=== PATIENT | female | born 1960 | race Caucasian/White ===

== ENCOUNTER 2020-07-10 17:22 | Outpatient (REF) | payer OTHER, SELFPAY ==
--- NOTE | 2020-07-10 16:30 | PAPFT_PTH ---
PATIENT: LATOYA URIBE LOC: [facility]#:[id number] AGE/SX: 59/F ROOM: RE07/10/[address]: Stacie Tamez : 1960 BED: DIS: 07/10/2020 SPEC #: [id number] RECD: 07/11/20 12:54 STATUS: DEBORAH REShereen #: [id number] MARGY: 07/10/20 16:[address]: Stacie Tamez DEPT: [facility] Cytology RECD BY: Vane Rasmussen Tissues: 1 - CX/ENDOCX FOR PAP SMEARS Procedures: PAP THIN PREP/[facility] Screening HPV DNA PROBE Comments: [id number] ([facility])
== END 2020-07-10 17:42 ==
LOC: NCHCN 17:22
PROVIDERS: PCP Family Medicine; Visit Provider Family Medicine
DX: Z00.00 Encounter for general adult medical examination without abnormal findings (principal); Z12.4 Encounter for screening for malignant neoplasm of cervix; Z87.42 Personal history of other diseases of the female genital tract; Z11.51 Encounter for screening for human papillomavirus (HPV)
CPT/HCPCS: 88142; 87624

== ENCOUNTER 2020-07-19 14:26 | Outpatient (REF) | payer OTHER, SELFPAY ==
[2020-07-19 21:31] LABS: Anion Gap 8.5 mmol/L (3-11); BUN 22 mg/dL (7-18); CO2 29.5 mmol/L (21.0-32.0); CREATININE 0.94 mg/dL (0.55-1.02); Calcium 9.4 mg/dL (8.5-10.1); Calculated LDL 144 mg/dL (<100); Chloride 102 mmol/L (98-107); Cholesterol 250 mg/dL (<200); Glucose 103 mg/dL (74-106); HDL Cholesterol 83 mg/dL (40-60); Potassium 4.2 mmol/L (3.5-5.1); Sodium 140 mmol/L (136-145); Triglyceride 118 mg/dL (<150)
[2020-07-19 21:41] LABS: Hemoglobin A1C 5.7 % (<5.7)
== END 2020-07-19 14:46 ==
LOC: NCHCN 14:26
PROVIDERS: PCP Family Medicine; Visit Provider Family Medicine
DX: Z00.00 Encounter for general adult medical examination without abnormal findings (principal)
CPT/HCPCS: 80048; 80061; 83036

== ENCOUNTER 2024-07-28 22:53 | Outpatient (REF) | payer MEDICARE, SELFPAY ==
[2024-07-28 22:54] LABS: Vitamin D 25 Total 42.3 ng/mL (30-100)
== END 2024-07-28 22:54 | disposition home or self-care (01) ==
LOC: NCHCN 22:53
PROVIDERS: PCP Family Medicine; Visit Provider Family Medicine
DX: M81.0 Age-related osteoporosis without current pathological fracture (principal)
CPT/HCPCS: 82306